=== PATIENT | female | born 1955 | race Caucasian/White ===

== ENCOUNTER 2017-02-09 18:19 | Inpatient (IN) | payer OTHER ==
[~2017-02-09] VITALS: Ht 157.5 cm; Wt 80.7 kg
[~2017-02-09 18:19] MED LIST: ALLEGRA ALLERG180 M1 PO; ATORVASTATIN CA40 MG ORAL; COLACE100 MG ORAL; ESTRACE42.5 GM PV; ESTROGEN-METHY1 EAC3 PO; FLORINEF0.1 MG ORAL; LEVOTHYROXINE112 MCG ORAL; MIDODRINE HCL2.5 MG ORAL; MIRALAX17 G2 ORAL; NITROFURANTOIN100 M2 ORAL; NORCO 5-325 TA1 EACH ORAL; PROMETRIUM100 MG PO; SYNTHROID100 MCG ORAL; TOPROL XL50 MG ORAL; VICODIN 5-3001 EACH ORAL
[2017-02-09 18:30] VITALS: BP 120/79
[2017-02-09] MEDS ORDERED: Morphine Sulfate 4mg/ml Inj IVP ONE (18:45)
[2017-02-09 18:54] LABS: BASOPHILS % (AUTO) 1.2 % (0.0-2.0); EOSINOPHILS % (AUTO) 3.4 % (0.0-3.0); LYMPHOCYTES % (AUTO) 29.9 % (20.0-45.0); MEAN CORPUSCULAR HEMOGLOBIN 33.5 PG (27.0-31.0); MEAN CORPUSCULAR HGB CONC 34.9 G/DL (32.0-36.0); MEAN CORPUSCULAR VOLUME 96 FL (80-99); MEAN PLATELET VOLUME 7.8 FL (6.5-10.1); MONOCYTES % (AUTO) 9.5 % (1.0-10.0); NEUTROPHILS % (AUTO) 55.9 % (45.0-75.0); PLATELET COUNT 344 K/UL (150-450); RED BLOOD COUNT 4.25 M/UL (4.20-5.40); RED CELL DISTRIBUTION WIDTH 11.5 % (11.6-14.8); WHITE BLOOD COUNT 10.7 K/UL (4.8-10.8)
[2017-02-09 18:59] LABS: TROPONIN I < 0.30 ng/mL (<=0.30)
[2017-02-09 19:13] LABS: ALBUMIN/GLOBULIN RATIO 1.1 (1.0-2.7); CALCIUM 10.4 mg/dL (8.6-10.2); CREATININE 1.2 mg/dL (0.5-0.9); POTASSIUM 4.3 mEQ/L (3.4-4.9); TOTAL PROTEIN 7.8 g/dL (6.6-8.7)
[2017-02-09 19:19] VITALS: BP 129/69
[2017-02-09 19:22] LABS: CKMB 1.1 ng/mL (< 3.8)
[2017-02-09 19:24] LABS: THYROID STIMULATING HORMONE 3.51 uIU/mL (0.300-4.500)
[2017-02-09 20:00] VITALS: BP 121/80
--- NOTE | 2017-02-09 20:12 | Emergency Room Report ---
History of Present Illness General Chief Complaint: Syncope Source: Patient, EMS Present Illness HPI 61-year-old female presents to ED status post syncopal episode. Patient states she was in her kitchen today when she felt dizzy and lightheaded and fell forward passing out. Patient states she likely fell on her chest and hit her head. Patient is here complaining of chest pain, left-sided, 10 out of 10, sharp, radiating down the left arm. Patient was given nitroglycerin by EMS without relief. Patient states she has had syncopal episodes in the past. Has a pacemaker for sick sinus syndrome. Is on other medications for low blood pressure. Denies smoking or drug use. No other aggravating relieving factors. Denies any other associated symptom Allergies: Coded Allergies: ASPIRIN (Unverified Allergy, Unknown, 11/19/14) ATORVASTATIN (Unverified Allergy, Unknown, 02/09/17) CIPROFLOXACIN (Unverified Allergy, Unknown, 11/19/14) Patient History Past Surgical History: pacemaker Pertinent Family History: none Social History: Denies: alcohol use, drug use, smoking Now: No Immunizations: UTD Reviewed Nursing Documentation: PMH: Agreed, PSxH: Agreed Nursing Documentation-PMH Past Medical History: No History, Except For Hx Pacemaker: Yes - 2010 Hx Cancer: No Hx Gastrointestinal Problems: Yes Hx Neurological Problems: No Hx Cerebrovascular Accident: No - HYPOTHYROIDSM Review of Systems All Other Systems: negative except mentioned in HPI Physical Exam Vital Signs Date Time Temp Pulse Resp B/P Pulse Ox O2 Delivery O2 Flow Rate FiO2 02/09/17 18:14 98.1 73 18 120/79 99 Room Air Sp02 EP Interpretation: reviewed, normal General Appearance: no apparent distress, alert, GCS 15, non-toxic Head: normocephalic, atraumatic Eyes: bilateral eye PERRL, bilateral eye normal inspection ENT: hearing grossly normal, normal pharynx, no angioedema, normal voice Neck: full range of motion, supple/symm/no masses Respiratory: chest non-tender, lungs clear, normal breath sounds, speaking full sentences Cardiovascular #1: regular rate, rhythm, no edema Cardiovascular #2: 2+ carotid (R), 2+ carotid (L), 2+ radial (R), 2+ radial (L) , 2+ dorsalis pedis (R), 2+ dorsalis pedis (L) Gastrointestinal: normal bowel sounds, non tender, soft, non-distended, no guarding, no rebound Rectal: deferred Genitourinary: normal inspection, no CVA tenderness Musculoskeletal: back normal, gait/station normal, normal range of motion, non- tender, calf tenderness Neurologic: alert, oriented x3, responsive, motor strength/tone normal, sensory intact, speech normal Psychiatric: judgement/insight normal, memory normal, mood/affect normal, no suicidal/homicidal ideation Reflexes: 3+ bicep (R), 3+ bicep (L), 3+ tricep (R), 3+ tricep (L), 3+ knee (R) , 3+ knee (L) Skin: normal color, no rash, warm/dry, well hydrated Lymphatic: no adenopathy Medical Decision Making Diagnostic Impression: Primary Impression: Syncope Qualified Codes: R55 - Syncope and collapse Additional Impression: ACS (acute coronary syndrome) ER Course Hospital Course 61-year-old F presents ED s/p syncopal episode. c/o chest pain Differential diagnoses include: DC/unstable angina, arrythmia, dehydration, CVA/ TIA Clinical course Patient placed on stretcher. on ekg manager. After initial history and physical I ordered labs, EKG, chest x-ray, IVFs, CT Brain labs reviewed- no leukocytosis, hemoglobin/hematocrit ok, electrolytes okay, troponins negative EKG- NSR, no acute process CT CHest - no acute process, pacemaker CT brain-unremarkable Case discussed with Dr. Acevedo and he agreed to accept the patient to his service for further care and support I. I feel this is a highly complex case requiring extensive working including EKG/Rhythm strip, Xray/CT/US, Blood/urine lab work, repeat exams while in ED, and administration of strong opiates/narcotics for pain control, admission to hospital or close patient follow up. Diagnosis - syncope, ACS admitted to telemetry in serious condition Labs Test 02/09/17 18:30 02/09/17 19:30 White Blood Count 10.7 K/UL (4.8-10.8) Red Blood Count 4.25 M/UL (4.20-5.40) Hemoglobin 14.2 G/DL (12.0-16.0) Hematocrit 40.7 % (37.0-47.0) Mean Corpuscular Volume 96 FL (80-99) Mean Corpuscular Hemoglobin 33.5 PG (27.0-31.0) Mean Corpuscular Hemoglobin Concent 34.9 G/DL (32.0-36.0) Red Cell Distribution Width 11.5 % (11.6-14.8) Platelet Count 344 K/UL (150-450) Mean Platelet Volume 7.8 FL (6.5-10.1) Neutrophils (%) (Auto) 55.9 % (45.0-75.0) Lymphocytes (%) (Auto) 29.9 % (20.0-45.0) Monocytes (%) (Auto) 9.5 % (1.0-10.0) Eosinophils (%) (Auto) 3.4 % (0.0-3.0) Basophils (%) (Auto) 1.2 % (0.0-2.0) Sodium Level 132 mEQ/L (135-145) Potassium Level 4.3 mEQ/L (3.4-4.9) Chloride Level 89 mEQ/L (98-107) Carbon Dioxide Level 21 mEQ/L (20-30) Anion Gap 22 (5-15) Blood Urea Nitrogen 14 mg/dL (7-23) Creatinine 1.2 mg/dL (0.5-0.9) Estimat Glomerular Filtration Rate 46.0 mL/min (>60) Glucose Level 127 mg/dL (74-106) Calcium Level 10.4 mg/dL (8.6-10.2) Total Bilirubin 0.2 mg/dL (0.0-1.2) Aspartate Amino Transf (AST/SGOT) 25 U/L (5-40) Alanine Aminotransferase (ALT/SGPT) 22 U/L (3-33) Alkaline Phosphatase 67 U/L (35-104) Total Creatine Kinase 76 U/L (26-140) Creatine Kinase MB 1.1 ng/mL (< 3.8) Creatine Kinase MB Relative Index 1.4 Troponin I < 0.30 ng/mL (<=0.30) Pro-B-Type Natriuretic Peptide 65 pg/mL (0-125) Total Protein 7.8 g/dL (6.6-8.7) Albumin 4.1 g/dL (3.5-5.2) Globulin 3.7 g/dL Albumin/Globulin Ratio 1.1 (1.0-2.7) Thyroid Stimulating Hormone (TSH) 3.510 uIU/mL (0.300-4.500) Free Thyroxine 1.47 ng/dL (0.86-1.85) Total Triiodothyronine 0.97 ng/mL (0.80-2.00) EKG Diagnostic Results Rate: normal Rhythm: NSR ST Segments: no acute changes ASA given to the pt in ED: No - allergy to aspirin Rhythm Strip Diag. Results EP Interpretation: yes Rhythm: NSR, no PVC's, no ectopy CT/MRI/US Diagnostic Results CT/MRI/US Diagnostic Results : Imaging Test Ordered: CT Head, CT Chest Impression CT Head- no acute process CT Chest - no acute process, pacemaker Last Vital Signs Date Time Temp Pulse Resp B/P Pulse Ox O2 Delivery O2 Flow Rate FiO2 02/09/17 19:19 71 18 129/69 100 Room Air 02/09/17 19:02 98.1 Status: improved Disposition: ADMITTED INPATIENT Condition: Serious Referrals: NOT CHOSEN JHONNY/,REFERRING (PCP) LUNA LAND M.D. February 09, 2017 20:12
[2017-02-09] MEDS ORDERED: DuoNeb 0.5-3(2.5)mg/3ml neb HHN PRN (20:30)
[2017-02-09] MEDS ORDERED: Miralax 17gm pkt ORAL PRN (20:30)
[2017-02-09] MEDS ORDERED: Enalaprilat 2.5mg/2ml Inj IV PRN (20:30)
[2017-02-09] MEDS ORDERED: Nitroglycerin Subl 0.4mg tab (Bottle Of 25) SL PRN (20:30)
[2017-02-09] MEDS ORDERED: Morphine Sulfate 2mg/ml Inj IVP PRN (20:30)
[2017-02-09] MEDS ORDERED: Norco 5mg/325mg tab ORAL PRN (20:30)
[2017-02-09] MEDS ORDERED: Diltiazem 25mg/5ml IV PRN (20:30)
[2017-02-09 20:52] VITALS: BP 131/58
[2017-02-09] MEDS: Heparin 5000 units/ml inj SUBQ SCH (21:15)
--- NOTE | 2017-02-09 22:27 | History and Physical ---
History of Present Illness General Date patient seen: February 09, 2017 Reason for Hospitalization: Syncope Present Illness HPI 61-year-old female with hx of pacemaker for sick sinus syndrome presents to ED status post syncopal episode. She was in her kitchen today when she felt dizzy and lightheaded and fell forward passing out. She likely fell on her chest and hit her head. She is complaining of chest pain, left-sided, 10 out of 10, sharp , radiating down the left arm. Denies smoking or drug use. No other aggravating relieving factors. She is being admitted to telemetry for further work up. Allergies: Coded Allergies: ASPIRIN (Unverified Allergy, Unknown, 11/19/14) ATORVASTATIN (Unverified Allergy, Unknown, 02/09/17) CIPROFLOXACIN (Unverified Allergy, Unknown, 11/19/14) Medication History Scheduled Atorvastatin Calcium* (Atorvastatin Calcium*), 40 MG ORAL BEDTIME, (Reported) Docusate Sodium* (Colace*), 100 MG ORAL DAILY Fludrocortisone Acetate (Fludrocortisone Acetate), 0.1 MG ORAL DAILY, (Reported) Levothyroxine Sodium* (Synthroid*), 100 MCG ORAL DAILY, (Reported) Levothyroxine Sodium* (Levothyroxine Sodium*), 112 MCG ORAL DAILY@0630 Metoprolol Succinate* (Toprol Xl*), 50 MG ORAL DAILY, (Reported) Nitrofurantoin Monohyd/M-Cryst* (Macrobid 100 Mg*), 100 MG ORAL EVERY 12 HOURS Polyethylene Glycol 3350* (Miralax*), 17 GM ORAL DAILY Progesterone,Micronized (Progesterone), 100 MG PO QHS, (Reported) [Estradiol*], 1 APPLIC TWICE A WEEK, (Reported) [Midodrine*], 2.5 MG PO BID, (Reported) Scheduled PRN Hydrocodone Bit/Acetaminophen ([place] 5-300 Mg Tablet), 1 TAB ORAL Q4H PRN for For Pain, (Reported) Hydrocodone Bit/Acetaminophen 5-325* ([place] 5-325*), 1 TAB ORAL Q6H PRN for For Pain Nortriptyline Hcl (Nortriptyline Hcl), 10 MG PO QHS PRN for For Headache, ( Reported) Miscellaneous Medications Estrogen,Lyly/Me-Testosterone (Estrogen-Methyltestos F.s. Tab), 1 EACH PO, ( Reported) Fexofenadine Hcl (Maggie Allergy), 180 MG PO, (Reported) Discontinued Medications Estradiol* (Estrace*), 1 APPLIC PV DAILY, (Reported) Discontinued Reason: Prescription changed Midodrine* (Proamatine*), 2.5 MG ORAL THREE TIMES A DAY, (Reported) Discontinued Reason: Prescription changed Progesterone (Prometrium), 100 MG PO DAILY, (Reported) Discontinued Reason: Prescription changed Patient History Healthcare decision maker Resuscitation status Advanced Directive on File Review of Systems All Other Systems: negative except mentioned in HPI Physical Exam General Appearance: WD/WN, no apparent distress Lines, tubes and drains: peripheral, central line HEENT: normocephalic, atraumatic Neck: non-tender, normal alignment Respiratory/Chest: chest wall non-tender, lungs clear Cardiovascular/Chest: normal peripheral pulses, normal rate Abdomen: normal bowel sounds, non tender Extremities: normal range of motion, non-tender Skin Exam: normal pigmentation Musculoskeletal: normal muscle bulk Last 24 Hour Vital Signs Date Time Temp Pulse Resp B/P Pulse Ox O2 Delivery O2 Flow Rate FiO2 02/09/17 21:17 131/65 02/09/17 20:52 97.6 62 21 131/58 98 Room Air 02/09/17 20:09 98.1 73 18 129/69 100 Room Air 02/09/17 20:00 73 17 121/80 99 Room Air 02/09/17 19:19 71 18 129/69 100 Room Air 02/09/17 19:02 98.1 02/09/17 18:53 73 18 Room Air 02/09/17 18:30 98.1 73 18 120/79 99 Room Air 02/09/17 18:14 98.1 73 18 120/79 99 Room Air Laboratory Tests Test 02/09/17 18:30 02/09/17 19:30 White Blood Count 10.7 K/UL (4.8-10.8) Red Blood Count 4.25 M/UL (4.20-5.40) Hemoglobin 14.2 G/DL (12.0-16.0) Hematocrit 40.7 % (37.0-47.0) Mean Corpuscular Volume 96 FL (80-99) Mean Corpuscular Hemoglobin 33.5 PG (27.0-31.0) H Mean Corpuscular Hemoglobin Concent 34.9 G/DL (32.0-36.0) Red Cell Distribution Width 11.5 % (11.6-14.8) L Platelet Count 344 K/UL (150-450) Mean Platelet Volume 7.8 FL (6.5-10.1) Neutrophils (%) (Auto) 55.9 % (45.0-75.0) Lymphocytes (%) (Auto) 29.9 % (20.0-45.0) Monocytes (%) (Auto) 9.5 % (1.0-10.0) Eosinophils (%) (Auto) 3.4 % (0.0-3.0) H Basophils (%) (Auto) 1.2 % (0.0-2.0) Sodium Level 132 mEQ/L (135-145) L Potassium Level 4.3 mEQ/L (3.4-4.9) Chloride Level 89 mEQ/L (98-107) L Carbon Dioxide Level 21 mEQ/L (20-30) Anion Gap 22 (5-15) H Blood Urea Nitrogen 14 mg/dL (7-23) Creatinine 1.2 mg/dL (0.5-0.9) H Estimat Glomerular Filtration Rate 46.0 mL/min (>60) Glucose Level 127 mg/dL (74-106) H Calcium Level 10.4 mg/dL (8.6-10.2) H Total Bilirubin 0.2 mg/dL (0.0-1.2) Aspartate Amino Transf (AST/SGOT) 25 U/L (5-40) Alanine Aminotransferase (ALT/SGPT) 22 U/L (3-33) Alkaline Phosphatase 67 U/L (35-104) Total Creatine Kinase 76 U/L (26-140) Creatine Kinase MB 1.1 ng/mL (< 3.8) Creatine Kinase MB Relative Index 1.4 Troponin I < 0.30 ng/mL (<=0.30) Pro-B-Type Natriuretic Peptide 65 pg/mL (0-125) Total Protein 7.8 g/dL (6.6-8.7) Albumin 4.1 g/dL (3.5-5.2) Globulin 3.7 g/dL Albumin/Globulin Ratio 1.1 (1.0-2.7) Thyroid Stimulating Hormone (TSH) 3.510 uIU/mL (0.300-4.500) Free Thyroxine 1.47 ng/dL (0.86-1.85) Free Triiodothyronine Pending Total Triiodothyronine 0.97 ng/mL (0.80-2.00) Triiodothyronine (T3) Uptake Pending Urine Opiates Screen Positive (NEGATIVE) H Urine Barbiturates Screen Negative (NEGATIVE) Phencyclidine (PCP) Screen Negative (NEGATIVE) Urine Amphetamines Screen Negative (NEGATIVE) Urine Benzodiazepines Screen Negative (NEGATIVE) Urine Cocaine Screen Negative (NEGATIVE) Urine Marijuana (THC) Screen Negative (NEGATIVE) Height (Feet): 5 Height (Inches): 5.00 Weight (Pounds): 160 Medications Current Medications Medications (Trade) Dose Ordered Sig/Myriam Route PRN Reason Start Time Stop Time Status Last Admin Dose Admin Acetaminophen (Tylenol) 650 mg Q4H PRN ORAL FEVER 02/09/17 20:30 03/11/17 20:29 Acetaminophen/ Hydrocodone Bitart ([place] 5/325) 1 tab Q6H PRN ORAL For Pain 4-6 02/09/17 20:30 02/16/17 20:29 Albuterol/ Ipratropium (DuoNeb 0.5-3(2.5)mg/3ml) 3 ml Q4H PRN HHN Shortness of Breath 02/09/17 20:30 02/14/17 20:29 Diltiazem HCl (Cardizem) 10 mg Q1H PRN IV HR>120 02/09/17 20:30 03/11/17 20:29 Enalaprilat (Vasotec) 2.5 mg Q6H PRN IV SBP > 160 02/09/17 20:30 03/11/17 20:29 Heparin Sodium (Porcine) (Heparin 5000 units/ml) 5,000 units EVERY 12 HOURS SUBQ 02/09/17 21:00 03/11/17 20:59 02/09/17 21:15 Levothyroxine Sodium (Synthroid) 112 mcg ACBREAKFAST ORAL 02/10/17 06:30 03/12/17 06:29 Metoprolol Succinate (Toprol XL) 50 mg DAILY ORAL 02/10/17 09:00 03/12/17 08:59 Morphine Sulfate (Morphine Sulfate) 2 mg Q4H PRN IVP severe Pain (Pain Scale 7-10) 02/09/17 20:30 02/16/17 20:29 02/09/17 22:02 Nitroglycerin (Ntg) 0.4 mg Every 5 Minutes PRN SL Prn Chest Pain 02/09/17 20:30 03/11/17 20:29 02/09/17 21:17 Ondansetron HCl (Zofran) 4 mg Q6H PRN IVP Nausea & Vomiting 02/09/17 20:30 03/11/17 20:29 Polyethylene Glycol (Miralax) 17 gm DAILYPRN PRN ORAL Constipation 02/09/17 20:30 03/11/17 20:29 Temazepam (Restoril) 15 mg HSPRN PRN ORAL Insomnia 02/09/17 20:30 02/16/17 20:29 Assessment/Plan Problem List: (1) Acute encephalopathy ICD Codes: G93.40 - Encephalopathy, unspecified SNOMED: 9383903 (2) ACS (acute coronary syndrome) ICD Codes: I24.9 - Acute ischemic heart disease, unspecified SNOMED: 870242732 (3) Syncope ICD Codes: R55 - Syncope and collapse SNOMED: 193854295 Qualifiers: Qualified Codes: R55 - Syncope and collapse (4) Costochondritis ICD Codes: M94.0 - Chondrocostal junction syndrome [[place]] SNOMED: 64931963 (5) Pacemaker ICD Codes: Z95.0 - Presence of cardiac pacemaker SNOMED: 780370577, [id number] Assessment/Plan cardiac monitoring serial ekg, troponin echo Cardio to see. ROBERTA LOYA February 09, 2017 22:27
[2017-02-09 23:07] LABS: TROPONIN I < 0.30 ng/mL (<=0.30)
[2017-02-09] MEDS ORDERED: Morphine Sulfate 4mg/ml Inj IM PRN (23:45)
[2017-02-10] MEDS: Morphine Sulfate 4mg/ml Inj IVP PRN ×2 (00:27→06:46)
[2017-02-10] MEDS ORDERED: MIDODRINE PO (03:32)
[2017-02-10] MEDS ORDERED: PROGESTERONE100 MG PO (03:36)
[2017-02-10] MEDS ORDERED: Estradiol (03:40)
[2017-02-10] MEDS ORDERED: NORTRIPTYLINE H10 MG PO (03:42)
[2017-02-10 04:00] VITALS: BP 118/68
[2017-02-10 06:59] LABS: BASOPHILS % (AUTO) 0.8 % (0.0-2.0); EOSINOPHILS % (AUTO) 2.9 % (0.0-3.0); LYMPHOCYTES % (AUTO) 23.2 % (20.0-45.0); MEAN CORPUSCULAR HEMOGLOBIN 32.9 PG (27.0-31.0); MEAN CORPUSCULAR HGB CONC 33.6 G/DL (32.0-36.0); MEAN CORPUSCULAR VOLUME 98 FL (80-99); MEAN PLATELET VOLUME 8.1 FL (6.5-10.1); NEUTROPHILS % (AUTO) 65.1 % (45.0-75.0); PLATELET COUNT 313 K/UL (150-450); RED BLOOD COUNT 4.04 M/UL (4.20-5.40); RED CELL DISTRIBUTION WIDTH 11.6 % (11.6-14.8); WHITE BLOOD COUNT 9.6 K/UL (4.8-10.8)
[2017-02-10 07:00] LABS: INR 1.1 (0.9-1.1); PROTHROMBIN TIME 10.9 SEC (9.30-11.50)
[2017-02-10 07:14] LABS: TROPONIN I < 0.30 ng/mL (<=0.30)
[2017-02-10 07:22] LABS: CHOLESTEROL 204 mg/dL (< 200); CHOLESTEROL/HDL RATIO 7.8 (3.3-4.4); CRP QUANT < 0.3 mg/dL (< 0.5); HEMOLYSIS 4; LDL CHOLESTEROL (CALC.) 128 mg/dL (60-99)
[2017-02-10 08:27] VITALS: BP 134/69
--- NOTE | 2017-02-10 09:03 | Diagnostic Imaging Report ---
Clinical Indication: Trauma, chest pain Technique: Spiral acquisitions obtained through the chest. No IV contrast utilized, reason not stated. Multiplanar reconstructions generated. Total dose length product 937 mGycm. CTDIvol(s) 27 mGy. Dose reduction achieved using automated exposure control Comparison: None Findings:The lungs are clear. No infiltrates, effusions, congestion, masses, or nodules. The bones are unremarkable. Normal heart size. There is a left chest pacemaker. No mediastinal or hilar mass or adenopathy. Included portions of the thyroid are unremarkable. No axillary or chest wall mass or adenopathy. The included upper abdominal anatomy demonstrates fullness of the left renal collecting system. Possibly baseline for this patient, as appearance is similar to earlier abdominal pelvis CT of 12/01/14 Impression: No acute process Pacemaker This agrees with the preliminary interpretation provided overnight by Dr. Dutton The CT scanner at [facility] is accredited by the [place] [employer] and the scans are performed using protocols designed to limit radiation exposure to as low as reasonably achievable to attain images of sufficient resolution adequate for diagnostic evaluation.
[2017-02-10] MEDS: Heparin 5000 units/ml inj SUBQ SCH ×2 (09:32→20:36)
[2017-02-10 11:10] LABS: T3 UPTAKE 29 % (24-39)
--- NOTE | 2017-02-10 12:01 | Pulmonology Progress Note ---
Assessment/Plan Problems: (1) Acute encephalopathy (2) ACS (acute coronary syndrome) (3) Syncope (4) Costochondritis (5) Pacemaker Assessment/Plan keep on teli check labs check echo awaiting cardio consult monitor bp adjust meds if needed. dvt prophylaxis Subjective ROS Limited/Unobtainable: No Interval Events: no new complains Allergies: Coded Allergies: ASPIRIN (Unverified Allergy, Unknown, 11/19/14) ATORVASTATIN (Unverified Allergy, Unknown, 02/09/17) CIPROFLOXACIN (Unverified Allergy, Unknown, 11/19/14) Objective Last 24 Hour Vital Signs Date Time Temp Pulse Resp B/P Pulse Ox O2 Delivery O2 Flow Rate FiO2 02/10/17 09:43 98 Nasal Cannula 2.0 28 02/10/17 09:42 Nasal Cannula 2.0 28 02/10/17 09:27 60 134/69 02/10/17 08:27 97.5 60 22 134/69 98 Nasal Cannula 2.0 02/10/17 07:55 60 18 Nasal Cannula 2.0 28 02/10/17 04:00 60 02/10/17 04:00 97.8 68 20 118/68 96 Room Air 02/10/17 00:00 60 02/09/17 21:17 131/65 02/09/17 20:52 97.6 62 21 131/58 98 Room Air 02/09/17 20:09 98.1 73 18 129/69 100 Room Air 02/09/17 20:00 73 17 121/80 99 Room Air 02/09/17 19:19 71 18 129/69 100 Room Air 02/09/17 19:02 98.1 02/09/17 18:53 73 18 Room Air 02/09/17 18:30 98.1 73 18 120/79 99 Room Air 02/09/17 18:14 98.1 73 18 120/79 99 Room Air Intake and Output 02/09/17 02/10/17 19:00 07:00 Intake Total 0 ml 980 ml Output Total 550 ml Balance 0 ml 430 ml Intake Oral 0 ml 480 ml IV Total 500 ml Output Urine Total 350 ml Emesis 200 ml # Voids 2 Objective General Appearance: WD/WN, no apparent distress Lines, tubes and drains: peripheral, central line HEENT: normocephalic, atraumatic Neck: non-tender, normal alignment Respiratory/Chest: chest wall non-tender, lungs clear Cardiovascular/Chest: normal peripheral pulses, normal rate Abdomen: normal bowel sounds, non tender Extremities: normal range of motion, non-tender Skin Exam: normal pigmentation Musculoskeletal: normal muscle bulk Laboratory Tests 02/09/17 18:30: White Blood Count 10.7, Red Blood Count 4.25, Hemoglobin 14.2, Hematocrit 40.7, Mean Corpuscular Volume 96, Mean Corpuscular Hemoglobin 33.5H, Mean Corpuscular Hemoglobin Concent 34.9, Red Cell Distribution Width 11.5L, Platelet Count 344, Mean Platelet Volume 7.8, Neutrophils (%) (Auto) 55.9, Lymphocytes (%) (Auto) 29.9, Monocytes (%) (Auto) 9.5, Eosinophils (%) (Auto) 3.4H, Basophils (%) (Auto ) 1.2, Sodium Level 132L, Potassium Level 4.3, Chloride Level 89L, Carbon Dioxide Level 21, Anion Gap 22H, Blood Urea Nitrogen 14, Creatinine 1.2H, Estimat Glomerular Filtration Rate 46.0, Glucose Level 127H, Calcium Level 10.4H , Total Bilirubin 0.2, Aspartate Amino Transf (AST/SGOT) 25, Alanine Aminotransferase (ALT/SGPT) 22, Alkaline Phosphatase 67, Total Creatine Kinase 76, Creatine Kinase MB 1.1, Creatine Kinase MB Relative Index 1.4, Troponin I < 0.30, Pro-B-Type Natriuretic Peptide 65, Total Protein 7.8, Albumin 4.1, Globulin 3.7, Albumin/Globulin Ratio 1.1, Thyroid Stimulating Hormone (TSH) 3.510, Free Thyroxine 1.47, Free Triiodothyronine [Pending], Total Triiodothyronine 0.97, Triiodothyronine (T3) Uptake 29 02/09/17 19:30: Urine Opiates Screen PositiveH, Urine Barbiturates Screen Negative, Phencyclidine (PCP) Screen Negative, Urine Amphetamines Screen Negative, Urine Benzodiazepines Screen Negative, Urine Cocaine Screen Negative, Urine Marijuana (THC) Screen Negative 02/09/17 22:45: Troponin I < 0.30 02/10/17 06:30: White Blood Count 9.6, Red Blood Count 4.04L, Hemoglobin 13.3, Hematocrit 39.5, Mean Corpuscular Volume 98, Mean Corpuscular Hemoglobin 32.9H, Mean Corpuscular Hemoglobin Concent 33.6, Red Cell Distribution Width 11.6, Platelet Count 313, Mean Platelet Volume 8.1, Neutrophils (%) (Auto) 65.1, Lymphocytes (%) (Auto) 23.2, Monocytes (%) (Auto) 8.0, Eosinophils (%) (Auto) 2.9, Basophils (%) (Auto ) 0.8, Troponin I < 0.30, Thyroid Stimulating Hormone (TSH) 3.520, Prothrombin Time 10.9, Prothromb Time International Ratio 1.1, Activated Partial Thromboplast Time 27, C-Reactive Protein, Quantitative < 0.3, Triglycerides Level 249H, Cholesterol Level 204H, LDL Cholesterol 128H, HDL Cholesterol 26, Cholesterol/HDL Ratio 7.8H 02/10/17 11:50: Troponin I [Pending] Current Medications Medications (Trade) Dose Ordered Sig/Myriam Route PRN Reason Start Time Stop Time Status Last Admin Dose Admin Acetaminophen (Tylenol) 650 mg Q4H PRN ORAL FEVER 02/09/17 20:30 03/11/17 20:29 Acetaminophen/ Hydrocodone Bitart ([place] 5/325) 1 tab Q6H PRN ORAL For Pain 4-6 02/09/17 20:30 02/16/17 20:29 Albuterol/ Ipratropium (DuoNeb 0.5-3(2.5)mg/3ml) 3 ml Q4H PRN HHN Shortness of Breath 02/09/17 20:30 02/14/17 20:29 Diltiazem HCl (Cardizem) 10 mg Q1H PRN IV HR>120 02/09/17 20:30 03/11/17 20:29 Enalaprilat (Vasotec) 2.5 mg Q6H PRN IV SBP > 160 02/09/17 20:30 03/11/17 20:29 Heparin Sodium (Porcine) (Heparin 5000 units/ml) 5,000 units EVERY 12 HOURS SUBQ 02/09/17 21:00 03/11/17 20:59 02/10/17 09:32 Levothyroxine Sodium (Synthroid) 112 mcg ACBREAKFAST ORAL 02/10/17 06:30 03/12/17 06:29 02/10/17 06:11 Metoprolol Succinate (Toprol XL) 50 mg DAILY ORAL 02/10/17 09:00 03/12/17 08:59 02/10/17 09:27 Morphine Sulfate (Morphine Sulfate) 4 mg Q4H PRN IVP Severe Pain (Pain Scale 7-10) 02/10/17 03:45 02/17/17 03:44 02/10/17 06:46 Nitroglycerin (Ntg) 0.4 mg Every 5 Minutes PRN SL Prn Chest Pain 02/09/17 20:30 03/11/17 20:29 02/09/17 21:17 Ondansetron HCl (Zofran) 4 mg Q4H PRN IVP Nausea & Vomiting 02/10/17 08:00 03/12/17 07:59 Polyethylene Glycol (Miralax) 17 gm DAILYPRN PRN ORAL Constipation 02/09/17 20:30 03/11/17 20:29 Temazepam (Restoril) 15 mg HSPRN PRN ORAL Insomnia 02/09/17 20:30 02/16/17 20:29 ROBERTA LOYA February 10, 2017 12:01
[2017-02-10 12:04] VITALS: BP 122/59
[2017-02-10 12:36] LABS: TROPONIN I < 0.30 ng/mL (<=0.30)
[2017-02-10 15:54] VITALS: BP 126/61
--- NOTE | 2017-02-10 19:08 | Cardiology Progress Note ---
Assessment/Plan Assessment/Plan orthosttic vitals increae midodrin all trop neg dr samuels will fu tomorrow if need stress test as outpt [id number] Objective Last 24 Hour Vital Signs Date Time Temp Pulse Resp B/P Pulse Ox O2 Delivery O2 Flow Rate FiO2 02/10/17 15:54 97.0 60 20 126/61 99 Nasal Cannula 2.0 02/10/17 15:26 60 02/10/17 12:04 97.2 60 22 122/59 100 Nasal Cannula 2.0 02/10/17 11:56 60 02/10/17 09:43 98 Nasal Cannula 2.0 28 02/10/17 09:42 Nasal Cannula 2.0 28 02/10/17 09:27 60 134/69 02/10/17 08:27 97.5 60 22 134/69 98 Nasal Cannula 2.0 02/10/17 07:55 60 18 Nasal Cannula 2.0 28 02/10/17 07:37 60 02/10/17 04:00 60 02/10/17 04:00 97.8 68 20 118/68 96 Room Air 02/10/17 00:00 60 02/09/17 21:17 131/65 02/09/17 20:52 97.6 62 21 131/58 98 Room Air 02/09/17 20:09 98.1 73 18 129/69 100 Room Air 02/09/17 20:00 73 17 121/80 99 Room Air 02/09/17 19:19 71 18 129/69 100 Room Air Intake and Output 02/09/17 02/10/17 19:00 07:00 Intake Total 0 ml 980 ml Output Total 550 ml Balance 0 ml 430 ml Intake Oral 0 ml 480 ml IV Total 500 ml Output Urine Total 350 ml Emesis 200 ml # Voids 2 Laboratory Tests Test 02/09/17 19:30 02/09/17 22:45 02/10/17 06:30 02/10/17 11:50 Urine Opiates Screen Positive (NEGATIVE) H Urine Barbiturates Screen Negative (NEGATIVE) Phencyclidine (PCP) Screen Negative (NEGATIVE) Urine Amphetamines Screen Negative (NEGATIVE) Urine Benzodiazepines Screen Negative (NEGATIVE) Urine Cocaine Screen Negative (NEGATIVE) Urine Marijuana (THC) Screen Negative (NEGATIVE) Troponin I < 0.30 ng/mL (<=0.30) < 0.30 ng/mL (<=0.30) < 0.30 ng/mL (<=0.30) White Blood Count 9.6 K/UL (4.8-10.8) Red Blood Count 4.04 M/UL (4.20-5.40) L Hemoglobin 13.3 G/DL (12.0-16.0) Hematocrit 39.5 % (37.0-47.0) Mean Corpuscular Volume 98 FL (80-99) Mean Corpuscular Hemoglobin 32.9 PG (27.0-31.0) H Mean Corpuscular Hemoglobin Concent 33.6 G/DL (32.0-36.0) Red Cell Distribution Width 11.6 % (11.6-14.8) Platelet Count 313 K/UL (150-450) Mean Platelet Volume 8.1 FL (6.5-10.1) Neutrophils (%) (Auto) 65.1 % (45.0-75.0) Lymphocytes (%) (Auto) 23.2 % (20.0-45.0) Monocytes (%) (Auto) 8.0 % (1.0-10.0) Eosinophils (%) (Auto) 2.9 % (0.0-3.0) Basophils (%) (Auto) 0.8 % (0.0-2.0) Prothrombin Time 10.9 SEC (9.30-11.50) Prothromb Time International Ratio 1.1 (0.9-1.1) Activated Partial Thromboplast Time 27 SEC (23-33) C-Reactive Protein, Quantitative < 0.3 mg/dL (< 0.5) Triglycerides Level 249 mg/dL (< 150) H Cholesterol Level 204 mg/dL (< 200) H LDL Cholesterol 128 mg/dL (60-99) H HDL Cholesterol 26 mg/dL (> 60) Cholesterol/HDL Ratio 7.8 (3.3-4.4) H Thyroid Stimulating Hormone (TSH) 3.520 uIU/mL (0.300-4.500) HAYDEN KOEHLER February 10, 2017 19:08
[2017-02-10 19:50] VITALS: BP 125/84
[2017-02-10 20:35] LABS: TROPONIN I < 0.30 ng/mL (<=0.30)
[2017-02-10] MEDS: Norco 5mg/325mg tab ORAL PRN (20:39)
[2017-02-10] MEDS ORDERED: Norco 5mg/325mg tab ORAL PRN (22:30)
[2017-02-10 23:49] VITALS: BP 118/58
[2017-02-11] MEDS: Norco 5mg/325mg tab ORAL PRN ×3 (03:09→12:53)
--- NOTE | 2017-02-11 03:15 | Consultation ---
DATE OF CONSULTATION: 02/10/2017 CARDIOLOGY CONSULTATION CONSULTING PHYSICIAN: Todd Rooney M.D. REFERRING PHYSICIAN: Hollie Acevedo M.D. REASON FOR REFERRAL: Syncope. HISTORY OF PRESENT ILLNESS: This is a middle-aged female who apparently got up to go to the kitchen. While she was walking to the kitchen, she got diaphoretic and nauseated and felt like she was going to pass out. She tried to get herself to the floor, but apparently fell down on the left side and woke up some time later, she does not know how long. Her sweating and everything got resolved, however, when she tried to get up, she noticed that she was having some pain in the left side of her chest and to the back and left arm. She called the paramedics who brought her to the emergency room at [facility]. The pain has been intermittent, although initially lasted approximately one hour, it has come back again. There is no relieving or exacerbating factor noted by the patient. Specifically, no change in respiration, coughing, twisting, turning, or walking. There are no episodes of PND, but she does have some dyspnea on exertion. There is no orthopnea. She does have some dizziness on standing on a regular basis and she does not have any heart palpitations. PAST MEDICAL HISTORY: Positive for hypothyroidism, sick sinus syndrome, neurocardiogenic syncope, history of chest pain, dehydration, non-intractable nausea and vomiting, atypical chest pain, astigmatism, orthostatic hypotension, anemia, abnormal liver function test, leukocytosis, atypical migraines as well as colonic polyps, and pacemaker implantation, appendectomy, colonoscopy, exploratory laparotomy, and history of cardiac catheterization with ablation. ALLERGIES: She is allergic to aspirin, Cipro, and Lipitor. SOCIAL HISTORY: No smoking, no drinking, no alcoholic beverages, and no drugs. She works as a legal transcriptionist. REVIEW OF SYSTEMS: Gastrointestinal: She was nauseated. She did vomit one time on the ambulance while here otherwise negative. Genitourinary: Negative. Pulmonary: Negative. Constitutional: Negative. Neurologic: She does have occasional dizziness. PHYSICAL EXAMINATION: GENERAL: Shows be an elderly female in no respiratory distress. VITAL SIGNS: Her blood pressure is 126/61 with a heart rate of 60 and temperature 96.0 degrees. HEENT: Unremarkable. NECK: Supple. No jugular venous distention. LUNGS: Appear to be clear to auscultation and percussion. CARDIAC: Regular rate and rhythm. Borderline bradycardia. ABDOMEN: Soft and obese. Positive bowel sounds. Nontender. Chest wall is nontender to palpation. EXTREMITIES: There is no clubbing, cyanosis, nor is there any edema. NEUROLOGICAL: She is awake, alert, responsive, in no apparent respiratory distress. LABORATORY VALUES: White count of 9.6, hemoglobin 13.2, and platelet count of 313,000. All troponins were negative on three separate occasions. Her proBNP was only 65 at the time of her admission and her total cholesterol was 204 with a LDL of 128 and HDL of 26. TSH of 3.5. Sodium 132, potassium 4.3, chloride 89, bicarbonate 21, BUN 14, creatinine 1.2, and glucose of 127. Calcium was 10.4. At the time of admission, her TSH again was normal. Her urinalysis appears to show 10 to 15 WBCs, mild bacteria, few squamous epis, 2+ leukocyte esterase being noted. Urine cultures, gram-positive organisms, mixed in nature. ASSESSMENT: 1. Syncope with history of same. 2. History of neurocardiogenic syncope. 3. History of dehydration. 4. Chest pain. 5. History of permanent pacemaker implantation. PLAN: Dr. Acevedo, this patient was seen in cardiac consultation. The patient is usually followed by Dr. Mendez who will see the patient as of tomorrow. Orthostatics will be performed. Intravenous fluids will be administered for that and will be increased. She will be observed on telemetry for any arrhythmias. Her chest pains are somewhat atypical. She has had a prior negative ischemia evaluation at [facility] per my discussion with Dr. Mendez since her cardiac enzymes are negative. I will hold off on pursuing any stress testing here. She should have a repeat urinalysis performed. Her BNP is quite low and she may respond to intravenous fluids. Todd Rooney M.D. DR: CRYSTAL JOB#: [id number] CC:
[2017-02-11 03:53] VITALS: BP 119/63
[2017-02-11 06:30] LABS: TROPONIN I < 0.30 ng/mL (<=0.30)
[2017-02-11 08:05] VITALS: BP 136/61
[2017-02-11] MEDS: Heparin 5000 units/ml inj SUBQ SCH (08:44)
[2017-02-11 11:25] VITALS: BP 134/62
--- NOTE | 2017-02-11 13:49 | Cardiology Progress Note ---
Assessment/Plan Problem List: (1) Hypothyroidism (2) Syncope (3) Pacemaker (4) Costochondritis Status: stable, progressing Status Narrative Ms. Escalante has a history of syncope due to orthostasis/ neurocardiogenic and sick sinus syndrome, s/p perm pacemaker. She fell and hit L side of chest . Suspect CP of musculoskeletal origin. Has ruled out for VA and has no arrhythmias on telemetry. Assessment/Plan She will be discharged home w inc dose of proamitine 2.5 mg tid and analgesics. Will see in office followup over the next few weeks. Subjective ROS Limited/Unobtainable: No Subjective Ms. Escalante has L sided CP. She is s/p syncopal episode, and fell to L side. Objective Last 24 Hour Vital Signs Date Time Temp Pulse Resp B/P Pulse Ox O2 Delivery O2 Flow Rate FiO2 02/11/17 12:00 60 02/11/17 11:25 96.4 60 18 134/62 99 Nasal Cannula 2.0 02/11/17 09:40 97.5 02/11/17 09:00 60 60 60 02/11/17 08:39 61 136/61 02/11/17 08:05 97.5 61 18 136/61 98 Nasal Cannula 2.0 02/11/17 08:00 60 02/11/17 07:39 98 Nasal Cannula 2.0 02/11/17 07:39 Nasal Cannula 2.0 28 02/11/17 07:38 68 18 Nasal Cannula 2.0 28 02/11/17 04:00 60 02/11/17 03:53 98.1 65 19 119/63 98 Nasal Cannula 2.0 02/11/17 01:00 60 60 87 02/11/17 00:00 60 02/10/17 23:49 97.2 60 18 118/58 99 Nasal Cannula 2.0 02/10/17 20:00 60 02/10/17 19:50 98.6 78 19 125/84 98 Nasal Cannula 2.0 02/10/17 19:30 Nasal Cannula 2.0 28 02/10/17 19:30 98 Nasal Cannula 2.0 28 02/10/17 19:30 62 18 Nasal Cannula 2.0 28 02/10/17 15:54 97.0 60 20 126/61 99 Nasal Cannula 2.0 02/10/17 15:26 60 General Appearance: WD/WN, no apparent distress, alert EENT: PERRL/EOMI Neck: non-tender, normal alignment, supple, no JVD Rhythm: NSR Cardiovascular: normal rate, regular rhythm, no gallop/murmur Respiratory/Chest: lungs clear, other - no chest wall tenderness Abdomen: non tender, soft Extremities: no swelling Intake and Output 02/10/17 02/11/17 19:00 07:00 Intake Total 360 ml 1202 ml Output Total 400 ml 200 ml Balance -40 ml 1002 ml Intake Oral 360 ml 160 ml IV Total 1042 ml Output Urine Total 400 ml 200 ml # Voids 1 3 Laboratory Tests Test 02/10/17 20:10 02/11/17 05:25 Troponin I < 0.30 ng/mL (<=0.30) < 0.30 ng/mL (<=0.30) YOHANNES GALVAN February 11, 2017 13:49
[2017-02-11] MEDS ORDERED: PRO-AMATINE2.5 MG ORAL (14:15)
--- NOTE | 2017-02-11 16:29 | Cardiology Report ---
APPROVED REPORT EXAM: Two-dimensional and M-mode echocardiogram with Doppler and color Doppler. INDICATION Left ventricular function M-Mode DIMENSIONS IVSd1.2 (0.7-1.1cm)Left Atrium (MM)2.6 (1.6-4.0cm) LVDd4.3 (3.5-5.6cm)Aortic Root3.6 (2.0-3.7cm) IVSs1.4 cm LVDs3.0 (2.5-4.0cm) PWs1.3 cm Technically difficult study due to poor acoustic windows. Normal left ventricular chamber size, systolic function and wall motion. Left ventricular ejection fraction estimated to be 55-60%. No evidence of left ventricular hypertrophy. No evidence of pericardial fat or effusion. Right cardiac chamber sizes are within normal limits. Mild left atrial enlargement by 2D. Focal aortic valve sclerosis with adequate cusp excursion Thickened mitral valve leaflets with normal excursion. Mitral annulus and aortic root calcification. Pulmonic valve not well visualized. Normal tricuspid valve structure. IVC is normal in size with physiologic collapse. Probable pacemaker wire present in the right side chambers. A color flow and spectral Doppler study was performed and revealed: No aortic regurgitation. Mild mitral regurgitation. Left ventricular diastolic dysfunction grade 1. Mild tricuspid regurgitation. Tricuspid systolic velocities suggests peak right ventricular systolic pressure of 25 mmHg
--- NOTE | 2017-02-11 17:00 | Cardiology Report ---
APPROVED REPORT EKG Measurement Heart [id number] Normal sinus rhythm Cannot rule out Anterior infarct, age undetermined Abnormal ECG
--- NOTE | 2017-02-12 15:35 | Discharge Summary ---
Discharge Summary Hospital Course Date of Admission February 09, 2017 at 20:09 Date of Discharge February 11, 2017 at 14:51 Admitting Diagnosis SYNCOPE HPI Huseyin Escalante is a 61 year old female who was admitted on February 09, 2017 at 20: 09 for Syncope Hospital Course [id number] Discharge Discharge Disposition Patient was discharged to Home (01) Discharge Diagnoses: Aleja Donnelly NP Feb 12, 2017 15:35
--- NOTE | 2017-02-13 00:45 | Discharge Summary 2 SIG ---
DATE OF ADMISSION: 02/09/2017 DATE OF DISCHARGE: 02/11/2017 CONSULTANTS: 1. Todd Rooney M.D. 2. Staci Mendez M.D. BRIEF HOSPITAL COURSE: The patient is a 61-year-old female with history of pacemaker for sick sinus syndrome, presented to ED status post syncopal episode. The patient was in the kitchen, felt dizzy and lightheaded, and fell forward passing out. She fell on her chest and hit her head. She complained of chest pain, left-sided, 10/10, sharp, and radiating down to left arm. On evaluation at ED, EKG showed normal sinus rhythm. No acute process. Chest CT showed no acute process with presence of pacemaker. She was admitted to telemetry for further evaluation and was followed by Dr. Rooney. She was given IV hydration. She had a prior negative ischemia evaluation at [facility] and cardiac enzymes were negative. Chest pain was assessed to be musculoskeletal origin and secondary to falling and hitting on the left side of the chest. She has been ruled out for myocardial infarction as there was no arrhythmias seen on telemetry. She was cleared for discharge home with the increased dose of ProAmatine 2.5 mg t.i.d. and was given analgesics. Advised to follow up with Dr. Mendez over the next few weeks. FINAL DIAGNOSES: 1. Syncope. 2. Sick sinus syndrome, status post pacemaker. 3. Hypothyroidism. 4. Costochondritis. 5. History of neurocardiogenic syncope. 6. Acute encephalopathy. Hollie Acevedo M.D. I have been assigned to dictate discharge summary on this account and I was not involved in the patient's management. Aleja Donnelly N.P. DR: LUTHER JOB#: [id number] CC: [place]
== END 2017-02-11 14:51 | disposition home or self-care (01) | DRG 205 ==
LOC: ENRESERVDT → ENRESERVTM → EDBD 18:19 → EMR 19:13 → EDBEDREQ 19:53 → 2E 20:09
DX: M94.0 Chondrocostal junction syndrome [Tietze] (principal); G93.40 Encephalopathy, unspecified; W19.XXXA Unspecified fall, initial encounter; Z95.0 Presence of cardiac pacemaker; R55 Syncope and collapse; E03.9 Hypothyroidism, unspecified; Z88.6 Allergy status to analgesic agent; Z88.1 Allergy status to other antibiotic agents; Z88.8 Allergy status to other drugs, medicaments and biological substances
CPT/HCPCS: 36415; 70450; 71250; 80053; 80061; 80300; 82550; 82553; 83880; 84439; 84443; 84480; 84481; 84484; 85025; 85610; 85730; 86140; 93005; 93306; 94664; 94760; J2405